=== PATIENT | female | born 1975 | race Caucasian/White ===

== ENCOUNTER 2016-12-29 07:43 | Day surgery (SDC) | payer OTHER ==
[~2016-12-29] VITALS: Ht 160 cm; Wt 78.0 kg
[2016-12-29] VITALS (12 sets, daily range): BP systolic 113–138; BP diastolic 72–102; PULSE 75–94; RESP 10–20; Ht 160 cm; Wt 78.0 kg
[~2016-12-29 07:43] MED LIST: CIPROFLOXACIN 400MG/D5W 200 ML IVPB ONE
[2016-12-29] MEDS ORDERED: GLYCOPYRROLATE 0.4 MG INJ ONE (08:41)
[2016-12-29] MEDS ORDERED: PROPOFOL 20 ML ONE (08:41)
[2016-12-29] MEDS ORDERED: LIDOCAINE 2% (SDV) 5 ML INJ ONE (08:41)
[2016-12-29] MEDS ORDERED: MIDAZOLAM 1 MG/ML 2 ML INJ ONE (08:41)
[2016-12-29] MEDS ORDERED: NEOSTIGMINE 3 MG/3 ML SYRINGE ONE (08:41)
[2016-12-29] MEDS ORDERED: ROCURONIUM 50 MG INJ ONE (08:41)
[2016-12-29] MEDS ORDERED: FENTAnyl 50 MCG/ML VIAL ONE (08:44)
[2016-12-29] MEDS ORDERED: ONDANSETRON 4 MG INJ ONE (08:49)
[2016-12-29] MEDS ORDERED: OXYCODONE/ACETAMINOPHEN (5/325) TAB PO PRN ×2 (09:00)
[2016-12-29] MEDS ORDERED: hydrALAzine 20 MG INJ IV PRN (09:00)
[2016-12-29] MEDS ORDERED: MEPERIDINE 25 MG INJ IV PRN (09:00)
[2016-12-29] MEDS ORDERED: ATROPINE 1 MG/10 ML SYRINGE IV PRN (09:00)
[2016-12-29] MEDS ORDERED: FENTAnyl 50 MCG/ML VIAL IV PRN ×2 (09:00)
[2016-12-29] MEDS ORDERED: LABETALOL HCL 20MG INJ IV PRN (09:00)
[2016-12-29] MEDS ORDERED: HYDROmorphONE (0.2 MG/ML) 10ML SYG IV PRN ×3 (09:00)
[2016-12-29] MEDS ORDERED: DIPHENHYDRAMINE 50 MG INJ IV PRN (09:00)
[2016-12-29] MEDS ORDERED: ONDANSETRON 4 MG INJ IV PRN (09:00)
[2016-12-29] MEDS ORDERED: morphine (1 MG/ML) 10ML SYRINGE IV PRN ×3 (09:00)
[2016-12-29] MEDS ORDERED: MIDAZOLAM 1 MG/ML 2 ML INJ IV PRN (09:00)
[2016-12-29] MEDS ORDERED: EPHEDrine SULFATE 50 MG/5 ML SYG IV PRN (09:00)
[2016-12-29 09:27] LABS: ADD SCAN DIFF NO
[2016-12-29 09:32] LABS: BASOPHILS % 0.4 % (0.0-2.0); EOSINOPHILS # 0.1 10^3/ul (0.0-0.5); EOSINOPHILS % 0.6 % (0.0-7.0); HEMATOCRIT 40.3 % (37.0-47.0); HEMOGLOBIN 13.3 g/dl (12.0-16.0); LYMPHOCYTES % 35.5 % (15.0-51.0); MEAN CORPUSCULAR HEMOGLOBIN 28.4 pg (29.0-33.0); MEAN CORPUSCULAR VOLUME 86.1 fl (82.0-101.0); MEAN PLATELET VOLUME 9.3 fl (7.4-10.4); MONOCYTE # 0.4 10^3/ul (0.3-0.9); MONOCYTES % 5.1 % (0.0-11.0); NEUTROPHIL # 4.8 10^3/ul (1.6-7.5); NEUTROPHILS % 58.2 % (39.0-77.0); PLATELET COUNT 329 10^3/UL (140-415); RED BLOOD COUNT 4.68 10^6/ul (4.20-5.40); RED CELL DISTRIBUTION WIDTH 13.2 % (11.5-14.5); WHITE BLOOD COUNT 8.3 10^3/ul (4.8-10.8)
--- NOTE | 2016-12-29 09:39 | HPN ---
Date/Time of Note Date/Time of Note DATE: 12/29/16 TIME: 09:39 Interval H&P Admission Note Pt. seen H&P reviewed: No system changes CANDELARIO CARTER MD Dec 29, 2016 09:39
[2016-12-29 09:45] LABS: CALCIUM 9.1 mg/dl (8.4-10.2); CREATININE 0.52 mg/dl (0.44-1.00)
[2016-12-29] MEDS ORDERED: INDOMETHACIN 50 MG SUPP PR ONE (09:52)
[2016-12-29 09:56] LABS: INR 0.95; PROTIME 12.7 Sec (12.2-14.2)
[2016-12-29 09:57] LABS: PARTIAL THROMBOPLASTIN TIME 31.6 Sec (25.0-35.0)
--- NOTE | 2016-12-29 10:53 | GILP ---
DATE OF PROCEDURE: PROCEDURE PERFORMED: Colonoscopy with 41-year-old female undergoing this procedure for removal of t he stent and also to make sure there is no stone left behind. The risks of the procedure, related a nd unrelated complications, anesthetic risks, alternatives discussed and informed consent was obtain ed. DESCRIPTION OF PROCEDURE: The patient was brought to the GI lab, sedated by Dr. Hardin. After opti mum sedation, scope was passed with much ease into esophagus and advanced further down into stomach and duodenum. Stent was identified, successfully removed by snare through the biopsy channel. Bile duct was selectively cannulated, guidewire was passed deep inside and with the help of 12 mm balloo n a cholesterol stone was removed. Bile duct was swept multiple times. No stone was left behind. Scope was removed with excellent patient tolerance. Total fluoroscopy time was 1 second. IMPRESSION: 1. Removal of biliary stent. 2. Removal of the bile duct stones. 3. Normal cholangiogram post-balloon sweeping. 4. Fluoroscopy time was 1 second. PLAN: Resume feeding if the patient is asymptomatic. We will follow the patient in the office. Dictated By: CANDELARIO DUNAWAY/SALTY Conf#: [id number] DID#: [id number] CC: Malik Francisco MD;*EndCC*
--- NOTE | 2016-12-29 16:58 | RADRPT ---
PROCEDURE: Intraoperative imaging for ERCP with fluoroscopy. CLINICAL INDICATION: Right upper quadrant pain. Intraoperative. TECHNIQUE: 2 images of the right upper quadrant of the abdomen were obtained in the operating room with an image intensifier. No radiologist was in attendance. 1.3 seconds of fluoroscopy time was used. COMPARISON: No prior study is available for comparison. FINDINGS: The images demonstrate the endoscope in position and contrast injected into the common bile duct. T he common bile duct is dilated. A balloon sweep was made. IMPRESSION: 1. ERCP as described above. RPTAT: QQ .Malik Liao MD, Date Time Electronically viewed and signed by .Malik Liao MD, on 12/29/2016 16:58 .R/
== END 2016-12-29 12:25 | disposition home or self-care (01) ==
LOC: SDS 07:43
PROVIDERS: ATTEND Internal Medicine Gastroenterology
DX: K80.50 Calculus of bile duct without cholangitis or cholecystitis without obstruction (principal)
CPT/HCPCS: 74330; 80048; 85025; 85610; 85730; J0744; J2250; J2405; J2710; J3010